=== PATIENT | female | born 1945 | race Caucasian/White ===

== ENCOUNTER 2023-04-04 15:17 | Inpatient (IN) ==
--- NOTE | 2023-04-04 15:41 | DR.NAUSEAF ---
HPI Time Seen Time Seen by Provider: 04/04/23 15:41 Primary Care Physician Primary Care Physician: angelo rodrigues Complaints Chief Complaint Doctors Comments: Patient states that after [employer]ec[employer] she went to her back yard and sat down (12:50). Patient began to feel nauseated,everything appeared whit/bright and states that when he went out to the back yard patient was passed out in the chair. Patient denies:headache,chest pain,abdominal pain,extremity weakness. Chief Complaint:: pt states she went outside about 1250 to the let the dogs out and went to sit down in the chair after that she started feeling nauseous and h er vision got very bright but not blurry. states she passed out states she was slumped over in the chair less than 2 min but pt denies passing out. pt states after this episode she started feeling weak along with diarrhea. COVID-19 Coronavirus risk:travel/contact w/high risk person: No Has patient experienced Coronavirus symptoms: No Source History Provided: Patient Mode of Arrival Mode of Arrival: Wheelchair Timing Onset of Chief Complaint: 04/04/23 PMH PMH Past Medical History: Yes Past Medical History: Hypertension and Hypothyroidism Past Surgical History: Yes Surgical History: Hysterectomy, Tonsillectomy and Other Past Surgical History Comment: cataracts Family History History of Family Medical Conditions: Yes Family Medical History: Hypertension Social History Does patient currently use any type of tobacco product: No Have you used tobacco products in the last 12 months: No Type of Tobacco Use: None Does any household member use tobacco: No Alcohol Use: None Do you use any recreational Drugs:: No Lives With: Spouse Lives Where: Home Travel Risk Coronavirus risk:travel/contact w/high risk person: No Has patient experienced Coronavirus symptoms: No Infectious screening In the last 2 months have you had wt loss of >10#?: NO Have you had fever, night sweats or hemotysis?: No Have you traveled outside the country in the last 6 months?: No Isolation: Standard ROS Review of Systems Constitutional: Weakness Eyes: No Symptoms Reported ENTM: No Symptoms Reported Respiratoy: No Symptoms Reported Cardiovascular: Palpitations Gastrointestinal/Abdominal: Diarrhea and Nausea Genitourinary: No Symptoms Reported Neurological: Weakness; negative Headache, Paresthesia, Seizure or Tingling Musculoskeletal: No Symptoms Reported Integumentary: No Symptoms Reported Hematologic/Lymphatic: No Symptoms Reported Endocrine: No Symptoms Reported Psychiatric: No Symptoms Reported All Other Systems: Reviewed and Negative PE Vital Signs Vitals: Temperature 99.5 F Pulse Rate 108 Respiratory Rate 25 Blood Pressure 175/80 O2 Sat by Pulse Oximetry 98 General Limitations: No Limitations General Appearance: Alert and In No Apparent Distress Head Head Exam: Normal Inspection Eyes Eye exam: Normal Appearance ENT ENT Exam: Normal Exam Neck Neck Exam: Normal Inspection Chest Chest Inspection: Normal Inspection Respiratory Respiratory Exam: Normal Lung Sounds Bilat Respiratory Exam: Bilateral: Clear to Auscultation Cardiovascular Cardiovascular Exam: Normal Rhythm and Tachycardia Abdominal Exam Abdominal Exam: Normal Inspection, Normal Bowel Sounds and Soft Rectal Rectal Exam: Deferred External Exam: Female: Deferred : Speculum Exam (Female): Deferred : Bimanual Exam (female): Deferred Extremities Extremities Exam: Normal Inspection Back Back Exam: Normal Inspection Neurologic Neurological Exam: Alert and Oriented X3 Psychiatric Psychiatric Exam: Normal Affect and Normal Mood Skin Skin Exam: Warm, Dry, Intact and Normal Color MDM Differential Diagnosis Differential Diagnosis: Considerations may Include:: Urinary Tract Infection Differential Diagnosis Comment: Pneumonia,Head trauma,C-spine fracture/subluxation COURSE Treatment Treatment: Patient was brought to a monitored room and IV access was initiated. Patient received NS bolus 500ml + 1000ml iv bolus. She has a u/a with Leuk est 4+ and TNTC wbc. Patient has a wbc 18.9 and blood cx and urine cx have been collected. Patient has received levaquin 750mg iv and will be treated for Urospesis. Patient had a magnesium 1.9 and has received magnesium 2G iv. EKG did not reveal acute ischemia/First troponin is 31.7(nml) 18:[address] Odell. He has accepted patient to [facility].Patient has been stable in the ED [facility] Labs Reviewed Laboratory Results Reviewed?: Yes Result Diagrams: 04/05/23 05:11 04/05/23 05:11 Laboratory: WBC 18.9 X10^3/uL (3.6-10.0) H 04/04/23 16:15 RBC 3.63 X10^6/uL (3.5-5.4) 04/04/23 16:15 Hgb 11.0 g/dL (12.0-16.0) L 04/04/23 16:15 Hct 33.2 % (36.0-47.0) L 04/04/23 16:15 MCV 91.4 fL (80.0-100.0) 04/04/23 16:15 MCH 30.3 pg (27.0-34.0) 04/04/23 16:15 MCHC 33.1 g/dL (33.0-35.0) 04/04/23 16:15 RDW 15.5 % (11.6-16.5) 04/04/23 16:15 Plt Count 479 X10^3/uL (150.0-450.0) H 04/04/23 16:15 MPV 6.9 fL (7.4-11.0) L 04/04/23 16:15 Neut % (Auto) 83.7 % (42.0-75.0) H 04/04/23 16:15 Lymph % (Auto) 5.2 % (21.0-51.0) L 04/04/23 16:15 [place] % (Auto) 10.3 % (0.0-13.0) 04/04/23 16:15 Eos % (Auto) 0.1 % (0.9-2.9) L 04/04/23 16:15 Baso % (Auto) 0.7 % (0.2-1.0) 04/04/23 16:15 Neut # (Auto) 15.9 x10^3/uL (2.2-4.8) H 04/04/23 16:15 Lymph # (Auto) 1.0 X10^3/uL (1.3-2.9) L 04/04/23 16:15 [place] # (Auto) 1.9 x10^3/uL (0.3-0.8) H 04/04/23 16:15 Eos # (Auto) 0.0 x10^3/uL (0.0-0.2) 04/04/23 16:15 Baso # (Auto) 0.1 X10^3/uL (0.0-0.1) 04/04/23 16:15 Absolute Nucleated RBC 0.0 /100WBC 04/04/23 16:15 Sodium 133 mmol/L (136-145) L 04/04/23 16:15 Corrected Sodium 134 mmol/L (136-145) L 04/04/23 16:15 Potassium 3.5 mmol/L (3.5-5.1) 04/04/23 16:15 Chloride 98 mmol/L (98-107) 04/04/23 16:15 Carbon Dioxide 25.3 mmol/L (21-32) 04/04/23 16:15 BUN 12 mg/dL (7-18) 04/04/23 16:15 Creatinine 0.86 mg/dL (0.55-1.02) 04/04/23 16:15 Est GFR (MDRD) Af Amer > 60 (>60) 04/04/23 16:15 Est GFR (MDRD) Non-Af > 60 (>60) 04/04/23 16:15 Glucose 131 mg/dL (65-99) H 04/04/23 16:15 Lactic Acid 0.8 mmol/L (0.4-2.0) 04/04/23 18:31 Calcium 8.5 mg/dL (8.5-10.1) 04/04/23 16:15 Corrected Calcium TNP 04/04/23 16:15 Phosphorus 3.0 mg/dL (2.6-4.7) 04/04/23 18:31 Magnesium 1.9 mg/dL (2.0-2.9) L 04/04/23 16:15 Total Bilirubin 0.50 mg/dL (0.2-1.0) 04/04/23 16:15 AST 21 Units/L (15-37) 04/04/23 16:15 ALT 30 Units/L (12-78) 04/04/23 16:15 Alkaline Phosphatase 90 Units/L (46-116) 04/04/23 16:15 Creatine Kinase 485 Units/L (26-192) H 04/04/23 16:15 Troponin I High Sens 31.7 ng/L (4.0-60.0) 04/04/23 16:15 C-Reactive Protein 55.20 mg/L (0-3.0) H 04/04/23 18:31 Total Protein 7.8 g/dL (6.4-8.2) 04/04/23 16:15 Albumin 3.6 g/dL (3.4-5.0) 04/04/23 16:15 Globulin 4.2 g/dL (2.5-4.5) 04/04/23 16:15 Albumin/Globulin Ratio 0.9 Ratio (1.1-2.1) L 04/04/23 16:15 Specimen Type Clean catch urine 04/04/23 17:06 Urine Color Yellow (YELLOW) 04/04/23 17:06 Urine Appearance Cloudy (CLEAR) 04/04/23 17:06 Urine pH 6.0 (5.0 - 8.0) 04/04/23 17:06 Ur Specific [place] 1.010 (1.000-1.030) 04/04/23 17:06 Urine Protein 2+ (NEGATIVE) 04/04/23 17:06 Urine Glucose (UA) Negative (NEGATIVE) 04/04/23 17:06 Urine Ketones Negative (NEGATIVE) 04/04/23 17:06 Urine Blood 4+ (NEGATIVE) 04/04/23 17:06 Urine Nitrite Negative (NEGATIVE) 04/04/23 17:06 Urine Bilirubin Negative (NEGATIVE) 04/04/23 17:06 Urine Urobilinogen Normal (NORMAL) 04/04/23 17:06 Ur Leukocyte Esterase 3+ (NEGATIVE) 04/04/23 17:06 Urine RBC 10-20 /HPF (0-3) A 04/04/23 17:06 Urine WBC Tntc /HPF (0-5) A 04/04/23 17:06 Ur Squamous Epith Cells Rare /HPF (NEGATIVE) 04/04/23 17:06 Urine Bacteria 3+ /HPF (NEGATIVE) 04/04/23 17:06 Ur Culture Indicated? Yes/culture set up 04/04/23 17:06 XRAY XRAY Interpreted by: Radiologist and Self X-ray Results: CXR: No acute proxcess HISTORY syncope, chf, STUDY BRAIN W/O CON COMPARISON None TECHNIQUE Multiple axial images of the head without contrast. Dose reduction techniques including Automated Exposure Control (AEC) and adjustment of mA and kV were utilized. Contrast: None FINDINGS BRAIN PARENCHYMA: No acute hemorrhage, infarct, mass, or mass effect. Roman-white differentiation is maintained. Scattered white matter chronic small vessel ischemic changes. VENTRICLES/EXTRA-AXIAL SPACES: Unremarkable size and configuration. No hydrocephalus or extra-axial fluid collections. EXTRACRANIAL STRUCTURES:Unremarkable bones and soft tissues. There is acute on chronic left maxillary sinusitis. Visualized paranasal sinuses and mastoids are otherwise clear. IMPRESSION 1. No acute intracranial abnormality. 2. Generalized atrophy and small vessel ischemic disease. 3. Acute on chronic left maxillary sinusitis. Electronically signed by: Manav Nath (April 04, 2023 17:45:52) HISTORY syncope, chf STUDY CERVICAL SPINE W/O CON COMPARISON TECHNIQUE Multiple axial images of the cervical spine were obtained from the skull base to the thoracic inlet without administration of IV contrast. Sagittal and coronal reformats were performed and reviewed. Dose reduction techniques including Automated Exposure Control (AEC) and adjustment of mA and kV were utilized. FINDINGS There is a mild kyphosis in the cervical spine but no malalignment. The bones are osteopenic/osteoporotic. No vertebral compression fracture is identified. There is multilevel disc degeneration. There is multilevel facet hypertrophy. There is no fracture of the posterior elements. There is mild multilevel spinal stenosis. There is no significant neural foraminal stenosis. IMPRESSION Degeneration but nothing acute. Electronically signed by: Manav Nath (April 04, 2023 17:48:05) EKG Compared to prior EKG Dated: 04/04/23 Rate: 106 [place]: Normal Rhythm: ST Opioid Opioid Risk Tool Age (Timothy box if 16-45): No History of Preadolescent Sexual Abuse: No Total: 0 Total Score Risk Category: Low Risk Copyright: Jorge ANDRADE predicting aberrant behaviors Discharge Plan Diagnosis Discharge Problem: Sepsis, Acute UTI, Syncope Discharge Plan Patient Disposition: 09 ADMITTED INPATIENT Condition: Stable
[2023-04-04] MEDS ORDERED: NS 500 ML IV 500 ML IV ONE ×2 (15:45→16:09)
--- NOTE | 2023-04-04 16:06 | EKG ---
Test Reason : syncope Blood Pressure : */* mmHG Vent. Rate : 106 BPM Atrial Rate : 106 BPM P-R Int : 168 ms QRS Dur : 80 ms QT Int : 362 ms P-R-T Axes : 67 85 55 degrees QTc Int : 480 ms Sinus tachycardia Nonspecific ST abnormality Abnormal ECG No previous ECGs available Confirmed by Sergio Pickett ([id number]) on 04/05/2023 7:49:06 AM Referred By: Confirmed By: Sergio Pickett
[2023-04-04 16:33] LABS: BASOPHILS # (AUTO) 0.1 X10^3/uL (0.0-0.1); BASOPHILS % (AUTO) 0.7 % (0.2-1.0); EOSINOPHILS % (AUTO) 0.1 % (0.9-2.9); HEMATOCRIT 33.2 % (36.0-47.0); LYMPHOCYTES % (AUTO) 5.2 % (21.0-51.0); MEAN CORPUSCULAR HEMOGLOBIN 30.3 pg (27.0-34.0); MEAN CORPUSCULAR HGB CONC 33.1 g/dL (33.0-35.0); MEAN CORPUSCULAR VOLUME 91.4 fL (80.0-100.0); MEAN PLATELET VOLUME 6.9 fL (7.4-11.0); MONOCYTES # (AUTO) 1.9 x10^3/uL (0.3-0.8); MONOCYTES % (AUTO) 10.3 % (0.0-13.0); NEUTROPHILS # (AUTO) 15.9 x10^3/uL (2.2-4.8); NEUTROPHILS % (AUTO) 83.7 % (42.0-75.0); PLATELET COUNT 479 X10^3/uL (150.0-450.0); RED BLOOD COUNT 3.63 X10^6/uL (3.5-5.4); RED CELL DISTRIBUTION WIDTH 15.5 % (11.6-16.5); WHITE BLOOD COUNT 18.9 X10^3/uL (3.6-10.0)
[2023-04-04 16:42] LABS: ALANINE AMINOTRANSFERASE 30 Units/L (12-78); ALBUMIN 3.6 g/dL (3.4-5.0); ALKALINE PHOSPHATASE 90 Units/L (46-116); ASPARTATE AMINO TRANSFERASE 21 Units/L (15-37); BLOOD UREA NITROGEN 12 mg/dL (7-18); CALCIUM 8.5 mg/dL (8.5-10.1); CARBON DIOXIDE 25.3 mmol/L (21-32); CHLORIDE 98 mmol/L (98-107); COR NA(FOR HYPERGLY) 134 mmol/L (136-145); CREATINE KINASE 485 Units/L (26-192); CREATININE 0.86 mg/dL (0.55-1.02); GLUCOSE 131 mg/dL (65-99); MAGNESIUM 1.9 mg/dL (2.0-2.9); POTASSIUM 3.5 mmol/L (3.5-5.1); SODIUM 133 mmol/L (136-145); TOTAL PROTEIN 7.8 g/dL (6.4-8.2); eGFR NON BLACK RACES > 60 (>60)
[2023-04-04] MEDS ORDERED: MAGNESIUM SULFATE 1 GRAM/100 mL PREMIX 1 G/100 ML BAG IV SCH (17:12)
[2023-04-04] MEDS ORDERED: NS 1,000 ML IV 1,000 ML ONE (17:26)
[2023-04-04] MEDS ORDERED: MAGNESIUM SULFATE 1 GRAM/100 mL PREMIX 1 G/100 ML BAG IV ONE (17:27)
[2023-04-04 17:28] LABS: BILIRUBIN,URINE NEGATIVE (NEGATIVE); BLOOD/HEMOGLOBIN,URINE 4+ (NEGATIVE); GLUCOSE, URINE NEGATIVE (NEGATIVE); KETONES,URINE NEGATIVE (NEGATIVE); LEUKOCYTE ESTERASE ,URINE 3+ (NEGATIVE); NITRITES,URINE NEGATIVE (NEGATIVE); PROTEIN,URINE 2+ (NEGATIVE); UROBILINOGEN,URINE NORMAL (NORMAL)
[2023-04-04 17:32] LABS: APPEARANCE,URINE CLOUDY (CLEAR); BACTERIA,URINE 3+ /HPF (NEGATIVE); COLOR,URINE YELLOW (YELLOW); SQUAMOUS EPITHELIAL CELL,UR RARE /HPF (NEGATIVE)
[2023-04-04] MEDS: MAGNESIUM SULFATE 1 GRAM/100 mL PREMIX 1 G/100 ML BAG IV SCH ×2 (17:35→21:05)
[2023-04-04] MEDS ORDERED: NS 1,000 ML IV 1,000 ML IV ONE (17:36)
[2023-04-04] MEDS ORDERED: LEVAQUIN PREMIX IV 750 MG 750 MG/150 ML BAG IV ONE ×2 (17:42→18:36)
--- NOTE | 2023-04-04 17:52 | CT ---
HISTORYsyncope, chf,STUDYBRAIN W/O CONCOMPARISONNoneTECHNIQUEMult iple axial images of the head without contrast. Dose reduction techniques including Automated Exposure Control (AEC) and adjustment of mA and kV were utilized.Contrast: NoneFINDINGSBRAIN PARENCHYMA: No acute hemorrhage, infarct, mass, or mass effect.Roman-white differentiation is maintained.Scattered white matter chronic small vessel ischemic changes.VENTRICLES/EXTRA-AXIAL SPACES: Unremarkable size and configuration. No hydrocephalus or extra-axial fluid collections.EXTRACRANIAL STRUCTURES:Unremarkable bones and soft tissues. There is acute on chronic left maxillary sinusitis. Visualized paranasal sinuses and mastoids are otherwise clear.IMPRESSION1. No acute intracranial abnormality. 2. Generalized atrophy and small vessel ischemic disease. 3. Acute on chronic left maxillary sinusitis.Electronically signed by: Manav Nath (April 04, 2023 17:45:52)
--- NOTE | 2023-04-04 17:52 | CT ---
HISTORYsyncope, chfSTUDYCERVICAL SPINE W/O CONCOMPARISONTECHNIQUEMultiple axial images of the cervical spine were obtained from the skull base to the thoracic inlet without administration of IV contrast. Sagittal and coronal reformats were performed and reviewed. Dose reduction techniques including Automated Exposure Control (AEC) and adjustment of mA and kV were utilized.FINDINGSThere is a mild kyphosis in the cervical spine but no malalignment. The bones are osteopenic/osteoporotic. No vertebral compression fracture is identified. There is multilevel disc degeneration. There is multilevel facet hypertrophy. There is no fracture of the posterior elements. There is mild multilevel spinal stenosis. There is no significant neural foraminal stenosis.IMPRESSIONDegeneration but nothing acute.Electronically signed by: Manav Nath (April 04, 2023 17:48:05)
[2023-04-04] MEDS ORDERED: ZOFRAN INJ 4 MG VIAL IVP ONE (19:01)
[2023-04-04] MEDS ORDERED: ZOFRAN INJ 4 MG VIAL ONE (19:01)
[2023-04-04 19:10] LABS: LACTIC ACID 0.8 mmol/L (0.4-2.0)
[2023-04-04] MEDS ORDERED: LOPRESSOR TAB 50 MG PO ONE (19:34)
[2023-04-04] MEDS ORDERED: LOPRESSOR TAB 50 MG ONE (19:35)
--- NOTE | 2023-04-04 20:34 | EKG ---
Test Reason : syncope Blood Pressure : */* mmHG Vent. Rate : 103 BPM Atrial Rate : 103 BPM P-R Int : 170 ms QRS Dur : 78 ms QT Int : 348 ms P-R-T Axes : 58 59 64 degrees QTc Int : 455 ms Sinus tachycardia Nonspecific ST and T wave abnormality Abnormal ECG When compared with ECG of 04-APR-2023 16:04, (Unconfirmed) No significant change was found Confirmed by Sergio Pickett ([id number]) on 04/05/2023 7:48:27 AM Referred By: Confirmed By: Sergio Pickett
--- NOTE | 2023-04-04 21:24 | RAD ---
HISTORYsyncope, chf, Relevant Clinical InformationSTUDYCHEST, 1 [id number]/2023 isFINDINGSThe trachea is midline. The cardiac silhouette is unremarkable. The lungs are clear without focal infiltrate or effusion. The bony thorax is unremarkable.IMPRESSIONNo acute cardiopulmonary findings .Electronically signed by: Abdullahi Miguel (April 04, 2023 21:23:03)
[2023-04-05 01:15] VITALS: BMI 32.1
--- NOTE | 2023-04-05 04:31 | EKG ---
Test Reason : syncope Blood Pressure : */* mmHG Vent. Rate : 97 BPM Atrial Rate : 97 BPM P-R Int : 178 ms QRS Dur : 78 ms QT Int : 380 ms P-R-T Axes : 60 65 62 degrees QTc Int : 482 ms Normal sinus rhythm Prolonged QT Abnormal ECG When compared with ECG of 04-APR-2023 20:25, (Unconfirmed) T wave inversion now evident in Anterior leads Confirmed by Sergio Pickett (4) on 04/05/2023 7:48:10 AM Referred By: Confirmed By: Sergio Pickett
[2023-04-05 05:26] LABS: BASOPHILS # (AUTO) 0.2 X10^3/uL (0.0-0.1); BASOPHILS % (AUTO) 1.4 % (0.2-1.0); EOSINOPHILS % (AUTO) 0.2 % (0.9-2.9); HEMOGLOBIN 10.4 g/dL (12.0-16.0); LYMPHOCYTES # (AUTO) 2.3 X10^3/uL (1.3-2.9); LYMPHOCYTES % (AUTO) 13.8 % (21.0-51.0); MEAN CORPUSCULAR HEMOGLOBIN 30.5 pg (27.0-34.0); MEAN CORPUSCULAR HGB CONC 33.4 g/dL (33.0-35.0); MEAN CORPUSCULAR VOLUME 91.3 fL (80.0-100.0); MEAN PLATELET VOLUME 7.2 fL (7.4-11.0); MONOCYTES # (AUTO) 2.2 x10^3/uL (0.3-0.8); MONOCYTES % (AUTO) 13.2 % (0.0-13.0); NEUTROPHILS # (AUTO) 11.8 x10^3/uL (2.2-4.8); NEUTROPHILS % (AUTO) 71.4 % (42.0-75.0); PLATELET COUNT 436 X10^3/uL (150.0-450.0); RED CELL DISTRIBUTION WIDTH 15.3 % (11.6-16.5); WHITE BLOOD COUNT 16.6 X10^3/uL (3.6-10.0)
[2023-04-05 05:36] LABS: INR 1.22 (0.8-1.3)
[2023-04-05 05:37] LABS: ALANINE AMINOTRANSFERASE 22 Units/L (12-78); ALBUMIN 2.8 g/dL (3.4-5.0); ALKALINE PHOSPHATASE 75 Units/L (46-116); ASPARTATE AMINO TRANSFERASE 20 Units/L (15-37); BLOOD UREA NITROGEN 9 mg/dL (7-18); CALCIUM 8.4 mg/dL (8.5-10.1); CARBON DIOXIDE 24.7 mmol/L (21-32); CHLORIDE 100 mmol/L (98-107); COR CA(FOR HYPOALB) 9.4 mg/dL (8.5-10.1); COR NA(FOR HYPERGLY) 132 mmol/L (136-145); GLUCOSE 119 mg/dL (65-99); POTASSIUM 3.4 mmol/L (3.5-5.1); SODIUM 132 mmol/L (136-145); TOTAL PROTEIN 7.7 g/dL (6.4-8.2); eGFR NON BLACK RACES > 60 (>60)
[2023-04-05 05:42] LABS: LACTIC ACID 0.9 mmol/L (0.4-2.0)
[2023-04-05] MEDS ORDERED: HEPARIN SODIUM INJ 5000 UNITS IVP ONE ×2 (05:59→13:34)
[2023-04-05] MEDS ORDERED: HEPARIN SODIUM INJ 5000 UNITS ONE (06:20)
[2023-04-05] MEDS: HEPARIN SODIUM IN D5W 25,000 UNITS/500 ML BAG IV PRN (06:22)
[2023-04-05] MEDS ORDERED: KLOR-CON PO PRN ×2 (08:09→15:18)
[2023-04-05] MEDS ORDERED: POTASSIUM CHLORIDE LIQ 20 MEQ UDC PO PRN ×2 (08:09→15:18)
[2023-04-05] MEDS ORDERED: MICRO K EXTEN CAP 10 MEQ PO PRN ×2 (08:09→15:18)
[2023-04-05] MEDS ORDERED: K-DUR TAB 20 MEQ PO PRN ×2 (08:09→15:18)
[2023-04-05] MEDS ORDERED: POTASSIUM CHL 60 MEQ/NS 0.45% 500 ML IV PRN ×2 (08:09→15:18)
[2023-04-05] MEDS ORDERED: POTASSIUM CHL 40 MEQ/NS 0.45% 500 ML IV PRN ×2 (08:09→15:18)
[2023-04-05] MEDS ORDERED: MAGNESIUM SULFATE 1 GRAM/100 mL PREMIX 1 G/100 ML BAG IV PRN ×2 (08:09→15:18)
[2023-04-05] MEDS ORDERED: K-RIDER 10 MEQ/NS 100 ML 10 MEQ/100 ML BAG IV PRN ×2 (08:09→15:18)
--- NOTE | 2023-04-05 08:42 | EKG ---
Test Reason : r Blood Pressure : */* mmHG Vent. Rate : 96 BPM Atrial Rate : 96 BPM P-R Int : 140 ms QRS Dur : 76 ms QT Int : 302 ms P-R-T Axes : 44 66 93 degrees QTc Int : 381 ms Normal sinus rhythm Abnormal ECG When compared with ECG of 05-APR-2023 04:22, QT has shortened Confirmed by Sergio Pickett (4) on 04/07/2023 12:35:08 PM Referred By: Confirmed By: Sergio Pickett
[2023-04-05] MEDS ORDERED: PATIENT'S HOME MEDICATION (Thyroid (Pork) [Armour Thyroid] 30 mg tablet) PO SCH (09:00)
[2023-04-05] MEDS: CIPRO IV 400 MG PREMIX* 400 MG/200 ML IV.SOLN. IV SCH ×2 (10:25→20:22)
--- NOTE | 2023-04-05 12:52 | CT ---
HISTORYElevated D-dimerSTUDYCTA chest with contrast for pulmonary embolusTechnique: Axial post-contrast images with coronal, sagittal, and 3 dimensional maximum intensity projection images obtained and evaluated. Dose reduction procedures were used with mA/kv adjusted for body size.COMPARISONNoneFINDINGSThere is no evidence for acute pulmonary thromboembolic disease. Examination of the mediastinum demonstrated no evidence for mediastinal masses, enlarged mediastinal or enlarged hilar adenopathy or significant aortic abnormality. The heart is enlarged. No pleural effusions are identified. No chest wall or axillary abnormality is identified. Those portions of the upper abdominal organs visualized were within normal limits with the exception of partially visualized hydronephrosis on the left. CT abdomen pelvis would be of further diagnostic value. Thoracic spinal osteopenia is present with mid thoracic compression fractures of indeterminate age. Examination of the lung corea demonstrated no significant nodules, masses, alveolar infiltrates, areas of consolidation, peribronchial thickening, or bronchiectasis.IMPRESSIONNo evidence for acute pulmonary thromboembolic diseaseMarked cardiomegaly without congestive heart failureNo acute lung infiltrates identifiedLeft-sided renal hydronephrosis for which further evaluation with CT of the abdomen pelvis is recommended.Electronically signed by: MILA CROUCH (April 05, 2023 12:50:45)
[2023-04-06] MEDS: HEPARIN SODIUM IN D5W 25,000 UNITS/500 ML BAG IV PRN (05:55)
[2023-04-06 06:15] VITALS: BP 135/62
--- NOTE | 2023-04-06 07:54 | DR.H&P ---
H&P History & Physical for Day of: H&P Date: 04/05/23 Chief Complaint Chief Complaint: Syncope Chest pain Allergies Allergies Allergy/AdvReac Type Severity Reaction Status Date / Time amoxicillin [From Augmentin] Allergy Verified 03/21/23 11:50 clavulanic acid Allergy Verified 03/21/23 11:50 [From Augmentin] epinephrine Allergy Verified 03/21/23 11:50 History of Present Illness History of Present Illness: Pt is a 77 year old female past medical history of hypertension, hypothyroidism, presenting after having syncopal episode at home. Per her that witnessed the event, pt was sitting in chair and felt chest tightness, nausea, and then "passed out" for at least 2 minutes before she regained consciousness. She reports she has been having chest tightness more frequently for the past few months with it sometimes even waking her up at [facility]. Labs/imaging: Wbc 16.6, Hgb 10.4, Plt 436, Na 132, K 3.4, Creatinine 0.80, Glucose 119, UA c/w infection, Urine/Blood cultures pending, Troponin 42>81>241, Ekg: ST and T wave abnormality, consider lateral ischemia, T-wave inversion anterior leads, D-dimer 0.86. Pt admitted for NSTEMI, Acute Cystitis, and Syncope. Troponin level trending up, pt was started on heparin gtt. D-dimer elevated, will get CTA chest stat to rule out pulmonary embolism. Monitor on telemetry. Treat cystitis with antibiotics IV ciprofloxacin 400mg BID. Will start on transfer to higher level of care facility for NSTEMI for cardiology evaluation. Time spent on clinical assessment, reviewing labs and imaging, decision making, and documentation greater than 45 minutes. Past Medical History Past Medical History: Hypertension and Hypothyroidism Past Surgical History Surgical History: Tonsillectomy Family History Family Medical History: Hypertension Social History Does patient currently use any type of tobacco product: No Have you used tobacco products in the last 12 months: No Type of Tobacco Use: None Does any household member use tobacco: No Alcohol Use: None Drug Use: None Medications Home Medications: amoxicillin [From Augmentin] Allergy (Verified 03/21/23 11:50) clavulanic acid [From Augmentin] Allergy (Verified 03/21/23 11:50) epinephrine Allergy (Verified 03/21/23 11:50) CONTINUE taking the following medications candesartan 16 mg tablet 1 tab PO QDAY 04/04/23 [History] thyroid (pork) 30 mg tablet ([place] Thyroid) 1 tab PO QDAY 04/04/23 [History] ascorbic acid (vitamin C) 500 mg tablet (Vitamin C) 500 mg PO BID 04/05/23 [History] diphenhydramine HCl 25 mg capsule (Benadryl) 25 mg PO HS PRN Sleep 04/05/23 [History] multivitamin 1 tab PO DAILY 04/05/23 [History] naproxen sodium 220 mg tablet (Aleve) 220 mg PO DAILY 04/05/23 [History] Labs Result Diagrams: 04/05/23 05:11 04/05/23 05:11 Labs: Laboratory WBC 16.6 X10^3/uL (3.6-10.0) H 04/05/23 05:11 RBC 3.40 X10^6/uL (3.5-5.4) L 04/05/23 05:11 Hgb 10.4 g/dL (12.0-16.0) L 04/05/23 05:11 Hct 31.0 % (36.0-47.0) L 04/05/23 05:11 MCV 91.3 fL (80.0-100.0) 04/05/23 05:11 MCH 30.5 pg (27.0-34.0) 04/05/23 05:11 MCHC 33.4 g/dL (33.0-35.0) 04/05/23 05:11 RDW 15.3 % (11.6-16.5) 04/05/23 05:11 Plt Count 436 X10^3/uL (150.0-450.0) 04/05/23 05:11 MPV 7.2 fL (7.4-11.0) L 04/05/23 05:11 Neut % (Auto) 71.4 % (42.0-75.0) 04/05/23 05:11 Lymph % (Auto) 13.8 % (21.0-51.0) L 04/05/23 05:11 [place] % (Auto) 13.2 % (0.0-13.0) H 04/05/23 05:11 Eos % (Auto) 0.2 % (0.9-2.9) L 04/05/23 05:11 Baso % (Auto) 1.4 % (0.2-1.0) H 04/05/23 05:11 Neut # (Auto) 11.8 x10^3/uL (2.2-4.8) H 04/05/23 05:11 Lymph # (Auto) 2.3 X10^3/uL (1.3-2.9) 04/05/23 05:11 [place] # (Auto) 2.2 x10^3/uL (0.3-0.8) H 04/05/23 05:11 Eos # (Auto) 0.0 x10^3/uL (0.0-0.2) 04/05/23 05:11 Baso # (Auto) 0.2 X10^3/uL (0.0-0.1) H 04/05/23 05:11 Absolute Nucleated RBC 0.0 /100WBC 04/05/23 05:11 PT 15.2 SECONDS (11.8-14.3) 04/05/23 05:11 INR Target Range - 04/05/23 05:11 INR 1.22 (0.8-1.3) 04/05/23 05:11 APTT 30.7 SECONDS (22.9-36.5) 04/05/23 05:11 PTT Comment - 04/05/23 05:11 D-Dimer 0.86 ug/ml (0.0-0.57) H 04/05/23 05:11 Sodium 132 mmol/L (136-145) L 04/05/23 05:11 Corrected Sodium 132 mmol/L (136-145) L 04/05/23 05:11 Potassium 3.4 mmol/L (3.5-5.1) L 04/05/23 05:11 Chloride 100 mmol/L (98-107) 04/05/23 05:11 Carbon Dioxide 24.7 mmol/L (21-32) 04/05/23 05:11 BUN 9 mg/dL (7-18) 04/05/23 05:11 Creatinine 0.80 mg/dL (0.55-1.02) 04/05/23 05:11 Est GFR (MDRD) Af Amer > 60 (>60) 04/05/23 05:11 Est GFR (MDRD) Non-Af > 60 (>60) 04/05/23 05:11 Glucose 119 mg/dL (65-99) H 04/05/23 05:11 Lactic Acid 0.9 mmol/L (0.4-2.0) 04/05/23 05:11 Calcium 8.4 mg/dL (8.5-10.1) L 04/05/23 05:11 Corrected Calcium 9.4 mg/dL (8.5-10.1) 04/05/23 05:11 Phosphorus 3.0 mg/dL (2.6-4.7) 04/04/23 18:31 Magnesium 2.3 mg/dL (2.0-2.9) 04/05/23 05:11 Total Bilirubin 0.80 mg/dL (0.2-1.0) 04/05/23 05:11 AST 20 Units/L (15-37) 04/05/23 05:11 ALT 22 Units/L (12-78) 04/05/23 05:11 Alkaline Phosphatase 75 Units/L (46-116) 04/05/23 05:11 Creatine Kinase 415 Units/L (26-192) H 04/05/23 03:46 Troponin I High Sens 241.9 ng/L (4.0-60.0) H* 04/05/23 03:46 C-Reactive Protein 55.20 mg/L (0-3.0) H 04/04/23 18:31 Total Protein 7.7 g/dL (6.4-8.2) 04/05/23 05:11 Albumin 2.8 g/dL (3.4-5.0) L 04/05/23 05:11 Globulin 4.9 g/dL (2.5-4.5) H 04/05/23 05:11 Albumin/Globulin Ratio 0.6 Ratio (1.1-2.1) L 04/05/23 05:11 Specimen Type Clean catch urine 04/04/23 17:06 Urine Color Yellow (YELLOW) 04/04/23 17:06 Urine Appearance Cloudy (CLEAR) 04/04/23 17:06 Urine pH 6.0 (5.0 - 8.0) 04/04/23 17:06 Ur Specific [place] 1.010 (1.000-1.030) 04/04/23 17:06 Urine Protein 2+ (NEGATIVE) 04/04/23 17:06 Urine Glucose (UA) Negative (NEGATIVE) 04/04/23 17:06 Urine Ketones Negative (NEGATIVE) 04/04/23 17:06 Urine Blood 4+ (NEGATIVE) 04/04/23 17:06 Urine Nitrite Negative (NEGATIVE) 04/04/23 17:06 Urine Bilirubin Negative (NEGATIVE) 04/04/23 17:06 Urine Urobilinogen Normal (NORMAL) 04/04/23 17:06 Ur Leukocyte Esterase 3+ (NEGATIVE) 04/04/23 17:06 Urine RBC 10-20 /HPF (0-3) A 04/04/23 17:06 Urine WBC Tntc /HPF (0-5) A 04/04/23 17:06 Ur Squamous Epith Cells Rare /HPF (NEGATIVE) 04/04/23 17:06 Urine Bacteria 3+ /HPF (NEGATIVE) 04/04/23 17:06 Ur Culture Indicated? Yes/culture set up 04/04/23 17:06 Review of Systems Constitutional: No Symptoms Reported Eyes: No Symptoms Reported ENT: No Symptoms Reported Respiratory: No Symptoms Reported Cardiovascular: Chest Pain Gastrointestinal: No Symptoms Reported Genitourinary: Dysuria Musculoskeletal: No Symptoms Reported Skin: No Symptoms Reported Neurological: No Symptoms Reported Physical Exam Vital Signs: Temperature 98 F Pulse Rate [Brachial] 96 Pulse Rate 108 Respiratory Rate 20 Blood Pressure [Left Arm] 131/63 Blood Pressure 175/80 O2 Sat by Pulse Oximetry 96 Oriented: Normal Eyes: Normal Ear: Normal Nose: Normal Throat: Normal Respiratory: Clear Throughout Cardiovascular: Normal : Normal Auscultation: Bowel Sounds: Normal Palpation: Normal Tenderness: Normal Skin: Normal Musculoskeletal: Normal Psychiatric: Normal Mood Description: Calm and Appropriate Affect: Normal Speech Pattern: Clear and Appropriate Assessment/Plan (1) NSTEMI (non-ST elevated myocardial infarction): Status: Acute Plan: Monitor on telemetry Trend cardiac enzymes Repeat ekg (2) Acute UTI: Status: Acute Plan: IV ciprofloxacin Urine/blood culture pending (3) Syncope: Status: Acute Review H&P Reviewed: Yes Patient was examined?: Yes
--- NOTE | 2023-04-06 14:13 | W.DIS.FURT ---
Summary of Discharge Discharge Summary of Date Date of Exam: 04/06/23 Admission Date Date of Admission: 04/04/23 Admission Diagnosis Patient Problems (Updated 04/06/23 @ 07:53 by Madhu Odell) Acute UTI (Acute) N39.0 Sepsis (Acute) A41.9 Syncope (Acute) R55 Hospital Course: Pt is a 77 year old female past medical history of hypertension, hypothyroidism, admitted for , NSTEMI, syncopal episode, acute cystitis. Labs/imaging: Wbc 16.6, Hgb 10.4, Plt 436, Na 132, K 3.4, Creatinine 0.80, Glucose 119, UA c/w infection, Urine/Blood cultures pending, Troponin 241>479>303, Ekg: ST and T wave abnormality, consider lateral ischemia, T-wave inversion anterior leads, D- dimer 0.86. CTA negative for pulmonary embolism. Troponin level elevated, pt is currently on heparin gtt. Treating cystitis with antibiotics IV ciprofloxacin 400mg BID. Pt transferred to higher level of care facility [facility] for NSTEMI for cardiology evaluation. Time spent on clinical assessment, reviewing labs and imaging, decision making, and documentation greater than 45 minutes. Vital Signs: Vital Signs (72 hours) 04/04/23 15:27 04/04/23 15:25 04/04/23 15:30 Temperature 99.5 F Pulse Rate 103 H 108 H Pulse Rate [Brachial] Respiratory Rate 20 20 Blood Pressure 188/88 177/66 Blood Pressure [Left Arm] O2 Sat by Pulse Oximetry 98 100 Oxygen Delivery Method Room Air Oxygen Flow Rate FIO2% 04/04/23 15:30 04/04/23 15:45 04/04/23 16:01 Temperature Pulse Rate 105 H 105 H 110 H Pulse Rate [Brachial] Respiratory Rate 17 21 21 Blood Pressure Blood Pressure [Left Arm] O2 Sat by Pulse Oximetry 99 99 99 Oxygen Delivery Method Oxygen Flow Rate FIO2% 04/04/23 16:15 04/04/23 16:30 04/04/23 16:45 Temperature Pulse Rate 109 H 104 H 104 H Pulse Rate [Brachial] Respiratory Rate 22 20 21 Blood Pressure Blood Pressure [Left Arm] O2 Sat by Pulse Oximetry 99 99 99 Oxygen Delivery Method Oxygen Flow Rate FIO2% 04/04/23 17:04 04/04/23 17:04 04/04/23 17:08 Temperature Pulse Rate 121 H Pulse Rate [Brachial] Respiratory Rate 20 Blood Pressure 192/88 185/87 Blood Pressure [Left Arm] O2 Sat by Pulse Oximetry 99 Oxygen Delivery Method Oxygen Flow Rate FIO2% 04/04/23 17:08 04/04/23 17:15 04/04/23 17:22 Temperature Pulse Rate 110 H 110 H Pulse Rate [Brachial] Respiratory Rate 17 27 H Blood Pressure 183/86 Blood Pressure [Left Arm] O2 Sat by Pulse Oximetry 100 98 Oxygen Delivery Method Oxygen Flow Rate FIO2% 04/04/23 17:22 04/04/23 17:30 04/04/23 17:30 Temperature Pulse Rate 109 H 109 H Pulse Rate [Brachial] Respiratory Rate 19 21 Blood Pressure 175/80 Blood Pressure [Left Arm] O2 Sat by Pulse Oximetry 98 97 Oxygen Delivery Method Oxygen Flow Rate FIO2% 04/04/23 17:30 04/04/23 17:45 04/04/23 17:59 Temperature Pulse Rate 106 H 109 H Pulse Rate [Brachial] Respiratory Rate 22 17 Blood Pressure 175/80 Blood Pressure [Left Arm] O2 Sat by Pulse Oximetry 96 98 Oxygen Delivery Method Oxygen Flow Rate FIO2% 04/04/23 18:00 04/04/23 18:00 04/04/23 18:15 Temperature Pulse Rate 110 H 108 H Pulse Rate [Brachial] Respiratory Rate 14 25 H Blood Pressure 175/80 Blood Pressure [Left Arm] O2 Sat by Pulse Oximetry 98 98 Oxygen Delivery Method Oxygen Flow Rate FIO2% 04/04/23 19:49 04/04/23 20:00 04/04/23 20:30 Temperature 99.6 F Pulse Rate Pulse Rate [Brachial] 116 H Respiratory Rate 18 20 Blood Pressure Blood Pressure [Left Arm] 182/79 178/72 O2 Sat by Pulse Oximetry 98 98 Oxygen Delivery Method Room Air Room Air Room Air Oxygen Flow Rate FIO2% 04/05/23 00:00 04/05/23 04:00 04/05/23 06:15 Temperature 98.5 F 98 F Pulse Rate Pulse Rate [Brachial] 91 H 96 H 96 H Respiratory Rate 18 18 20 Blood Pressure Blood Pressure [Left Arm] 134/63 138/65 131/63 O2 Sat by Pulse Oximetry 95 97 96 Oxygen Delivery Method Room Air Room Air Room Air Oxygen Flow Rate FIO2% 04/05/23 08:45 04/05/23 08:00 04/05/23 09:00 Temperature 97.2 F L Pulse Rate Pulse Rate [Brachial] 101 H 92 H Respiratory Rate 25 H 26 H Blood Pressure Blood Pressure [Left Arm] 139/67 155/72 O2 Sat by Pulse Oximetry 98 100 Oxygen Delivery Method Room Air Room Air Room Air Oxygen Flow Rate 2 FIO2% 28 04/05/23 10:00 04/05/23 11:00 04/05/23 07:00 Temperature Pulse Rate Pulse Rate [Brachial] 97 H 90 Respiratory Rate 21 21 Blood Pressure Blood Pressure [Left Arm] 163/74 146/65 O2 Sat by Pulse Oximetry 100 100 Oxygen Delivery Method Room Air Room Air Room Air Oxygen Flow Rate FIO2% 04/05/23 12:00 04/05/23 13:00 04/05/23 14:00 Temperature Pulse Rate Pulse Rate [Brachial] 90 85 89 Respiratory Rate 21 18 19 Blood Pressure Blood Pressure [Left Arm] 147/65 156/67 138/65 O2 Sat by Pulse Oximetry 100 100 100 Oxygen Delivery Method Room Air Room Air Room Air Oxygen Flow Rate FIO2% 04/05/23 15:00 04/05/23 16:00 04/05/23 17:00 Temperature 99.4 F Pulse Rate Pulse Rate [Brachial] 91 H 93 H 95 H Respiratory Rate 21 24 21 Blood Pressure Blood Pressure [Left Arm] 145/63 148/67 147/65 O2 Sat by Pulse Oximetry 100 98 97 Oxygen Delivery Method Room Air Room Air Room Air Oxygen Flow Rate FIO2% 04/05/23 18:00 04/05/23 20:22 04/05/23 19:00 Temperature Pulse Rate Pulse Rate [Brachial] 99 H Respiratory Rate 23 Blood Pressure Blood Pressure [Left Arm] 143/64 O2 Sat by Pulse Oximetry 98 Oxygen Delivery Method Room Air Nasal Cannula Room Air Oxygen Flow Rate 2 FIO2% 28 04/05/23 19:00 04/05/23 20:00 04/05/23 21:00 Temperature 98.1 F Pulse Rate Pulse Rate [Brachial] 95 H 97 H 104 H Respiratory Rate 19 23 40 H Blood Pressure Blood Pressure [Left Arm] 151/65 166/72 147/77 O2 Sat by Pulse Oximetry 99 98 97 Oxygen Delivery Method Room Air Room Air Room Air Oxygen Flow Rate FIO2% 04/05/23 22:00 04/05/23 23:00 04/06/23 00:00 Temperature 98.2 F Pulse Rate Pulse Rate [Brachial] 97 H 94 H 86 Respiratory Rate 22 25 H 19 Blood Pressure Blood Pressure [Left Arm] 127/58 136/61 136/60 O2 Sat by Pulse Oximetry 98 98 96 Oxygen Delivery Method Room Air Room Air Room Air Oxygen Flow Rate FIO2% 04/06/23 01:00 04/06/23 02:00 04/06/23 03:00 Temperature Pulse Rate Pulse Rate [Brachial] 87 82 94 H Respiratory Rate 30 H 18 21 Blood Pressure Blood Pressure [Left Arm] 120/59 122/58 135/64 O2 Sat by Pulse Oximetry 98 98 99 Oxygen Delivery Method Room Air Room Air Room Air Oxygen Flow Rate FIO2% 04/06/23 04:00 04/06/23 05:00 04/06/23 06:00 Temperature 98.1 F Pulse Rate Pulse Rate [Brachial] 91 H 95 H 84 Respiratory Rate 33 H Blood Pressure Blood Pressure [Left Arm] 135/62 O2 Sat by Pulse Oximetry 99 98 99 Oxygen Delivery Method Oxygen Flow Rate FIO2% 04/06/23 07:00 Temperature Pulse Rate Pulse Rate [Brachial] Respiratory Rate Blood Pressure Blood Pressure [Left Arm] O2 Sat by Pulse Oximetry Oxygen Delivery Method Room Air Oxygen Flow Rate FIO2% Labs: Laboratory Last Values WBC 16.6 X10^3/uL (3.6-10.0) H 04/05/23 05:11 RBC 3.40 X10^6/uL (3.5-5.4) L 04/05/23 05:11 Hgb 10.4 g/dL (12.0-16.0) L 04/05/23 05:11 Hct 31.0 % (36.0-47.0) L 04/05/23 05:11 MCV 91.3 fL (80.0-100.0) 04/05/23 05:11 MCH 30.5 pg (27.0-34.0) 04/05/23 05:11 MCHC 33.4 g/dL (33.0-35.0) 04/05/23 05:11 RDW 15.3 % (11.6-16.5) 04/05/23 05:11 Plt Count 436 X10^3/uL (150.0-450.0) 04/05/23 05:11 MPV 7.2 fL (7.4-11.0) L 04/05/23 05:11 Neut % (Auto) 71.4 % (42.0-75.0) 04/05/23 05:11 Lymph % (Auto) 13.8 % (21.0-51.0) L 04/05/23 05:11 [place] % (Auto) 13.2 % (0.0-13.0) H 04/05/23 05:11 Eos % (Auto) 0.2 % (0.9-2.9) L 04/05/23 05:11 Baso % (Auto) 1.4 % (0.2-1.0) H 04/05/23 05:11 Neut # (Auto) 11.8 x10^3/uL (2.2-4.8) H 04/05/23 05:11 Lymph # (Auto) 2.3 X10^3/uL (1.3-2.9) 04/05/23 05:11 [place] # (Auto) 2.2 x10^3/uL (0.3-0.8) H 04/05/23 05:11 Eos # (Auto) 0.0 x10^3/uL (0.0-0.2) 04/05/23 05:11 Baso # (Auto) 0.2 X10^3/uL (0.0-0.1) H 04/05/23 05:11 Absolute Nucleated RBC 0.0 /100WBC 04/05/23 05:11 PT 15.2 SECONDS (11.8-14.3) 04/05/23 05:11 INR Target Range - 04/05/23 05:11 INR 1.22 (0.8-1.3) 04/05/23 05:11 APTT 65.4 SECONDS (22.9-36.5) H 04/06/23 07:34 PTT Comment - 04/06/23 07:34 D-Dimer 0.86 ug/ml (0.0-0.57) H 04/05/23 05:11 Sodium 132 mmol/L (136-145) L 04/05/23 05:11 Corrected Sodium 132 mmol/L (136-145) L 04/05/23 05:11 Potassium 3.4 mmol/L (3.5-5.1) L 04/05/23 05:11 Chloride 100 mmol/L (98-107) 04/05/23 05:11 Carbon Dioxide 24.7 mmol/L (21-32) 04/05/23 05:11 BUN 9 mg/dL (7-18) 04/05/23 05:11 Creatinine 0.80 mg/dL (0.55-1.02) 04/05/23 05:11 Est GFR (MDRD) Af Amer > 60 (>60) 04/05/23 05:11 Est GFR (MDRD) Non-Af > 60 (>60) 04/05/23 05:11 Glucose 119 mg/dL (65-99) H 04/05/23 05:11 Lactic Acid 0.7 mmol/L (0.4-2.0) 04/05/23 13:00 Calcium 8.4 mg/dL (8.5-10.1) L 04/05/23 05:11 Corrected Calcium 9.4 mg/dL (8.5-10.1) 04/05/23 05:11 Phosphorus 3.0 mg/dL (2.6-4.7) 04/04/23 18:31 Magnesium 2.3 mg/dL (2.0-2.9) 04/05/23 05:11 Total Bilirubin 0.80 mg/dL (0.2-1.0) 04/05/23 05:11 AST 20 Units/L (15-37) 04/05/23 05:11 ALT 22 Units/L (12-78) 04/05/23 05:11 Alkaline Phosphatase 75 Units/L (46-116) 04/05/23 05:11 Creatine Kinase 415 Units/L (26-192) H 04/05/23 03:46 Troponin I High Sens 303.5 ng/L (4.0-60.0) H* 04/05/23 20:31 C-Reactive Protein 55.20 mg/L (0-3.0) H 04/04/23 18:31 Total Protein 7.7 g/dL (6.4-8.2) 04/05/23 05:11 Albumin 2.8 g/dL (3.4-5.0) L 04/05/23 05:11 Globulin 4.9 g/dL (2.5-4.5) H 04/05/23 05:11 Albumin/Globulin Ratio 0.6 Ratio (1.1-2.1) L 04/05/23 05:11 Specimen Type Clean catch urine 04/04/23 17:06 Urine Color Yellow (YELLOW) 04/04/23 17:06 Urine Appearance Cloudy (CLEAR) 04/04/23 17:06 Urine pH 6.0 (5.0 - 8.0) 04/04/23 17:06 Ur Specific [place] 1.010 (1.000-1.030) 04/04/23 17:06 Urine Protein 2+ (NEGATIVE) 04/04/23 17:06 Urine Glucose (UA) Negative (NEGATIVE) 04/04/23 17:06 Urine Ketones Negative (NEGATIVE) 04/04/23 17:06 Urine Blood 4+ (NEGATIVE) 04/04/23 17:06 Urine Nitrite Negative (NEGATIVE) 04/04/23 17:06 Urine Bilirubin Negative (NEGATIVE) 04/04/23 17:06 Urine Urobilinogen Normal (NORMAL) 04/04/23 17:06 Ur Leukocyte Esterase 3+ (NEGATIVE) 04/04/23 17:06 Urine RBC 10-20 /HPF (0-3) A 04/04/23 17:06 Urine WBC Tntc /HPF (0-5) A 04/04/23 17:06 Ur Squamous Epith Cells Rare /HPF (NEGATIVE) 04/04/23 17:06 Urine Bacteria 3+ /HPF (NEGATIVE) 04/04/23 17:06 Ur Culture Indicated? Yes/culture set up 04/04/23 17:06 Reason For Visit: UROSEPSIS Discharge Date Discharge Date: 04/06/23 Discharge Diagnosis All Active Problems (Updated 04/06/23 @ 07:53 by Madhu Odell) NSTEMI (non-ST elevated myocardial infarction) (Acute) Acute UTI (Acute) Bronchitis (Acute) Sepsis (Acute) Syncope (Acute) Plan of Treatment: Continue with present treatment and follow up plan. Pt is to keep follow up appointment as instructed and take medications as ordered. Discharge Medications Discharge Medications: amoxicillin [From Augmentin] Allergy (Verified 03/21/23 11:50) clavulanic acid [From Augmentin] Allergy (Verified 03/21/23 11:50) epinephrine Allergy (Verified 03/21/23 11:50) CONTINUE taking the following medications candesartan 16 mg tablet 1 tab PO QDAY 04/04/23 [History] thyroid (pork) 30 mg tablet (Ilion Thyroid) 1 tab PO QDAY 04/04/23 [History] ascorbic acid (vitamin C) 500 mg tablet (Vitamin C) 500 mg PO BID 04/05/23 [History] diphenhydramine HCl 25 mg capsule (Benadryl) 25 mg PO HS PRN Sleep 04/05/23 [History] multivitamin 1 tab PO DAILY 04/05/23 [History] naproxen sodium 220 mg tablet (Aleve) 220 mg PO DAILY 04/05/23 [History] Discharge Plan Discharge Plan Hospital Course: Pt is a 77 year old female past medical history of hypertension, hypothyroidism, admitted for , NSTEMI, syncopal episode, acute cystitis. Labs/imaging: Wbc 16.6, Hgb 10.4, Plt 436, Na 132, K 3.4, Creatinine 0.80, Glucose 119, UA c/w infection, Urine/Blood cultures pending, Troponin 241>479>303, Ekg: ST and T wave abnormality, consider lateral ischemia, T-wave inversion anterior leads, D- dimer 0.86. CTA negative for pulmonary embolism. Troponin level elevated, pt is currently on heparin gtt. Treating cystitis with antibiotics IV ciprofloxacin 400mg BID. Pt transferred to higher level of care facility [facility] for NSTEMI for cardiology evaluation. Time spent on clinical assessment, reviewing labs and imaging, decision making, and documentation greater than 45 minutes. Patient Disposition: 66 XFER CRIT ACCESS HOSP IN Condition: Stable Health Concerns: Post Hospitalization: new medications and changes needed to prevent readmission or further decline. Pt educated and given instructions on all concerns. Plan of Treatment: Continue with present treatment and follow up plan. Pt is to keep follow up appointment as instructed and take medications as ordered. Prescriptions: No Action candesartan 16 mg tablet 1 tab PO QDAY [place] Thyroid 30 mg tablet 1 tab PO QDAY multivitamin Tablet 1 tab PO DAILY ascorbic acid (vitamin C) [Vitamin C] 500 mg Tablet 500 mg PO BID diphenhydramine HCl [Benadryl] 25 mg Capsule 25 mg PO HS PRN (Reason: Sleep) naproxen sodium [Aleve] 220 mg Tablet 220 mg PO DAILY Orders to Discharge Patient Discharge Orders: Discharge by Transfer to Outside Facility (Routine); Ordered 04/06/23 Ordered By: Madhu Odell Follow ups/Referrals Follow ups/Referrals: BERNARDO LARA [Primary Care Provider] - 3 days
== END 2023-04-06 08:33 | disposition critical access hospital (66) | DRG 689 ==
LOC: ER 15:17 → MED/SURG 19:13 → ICU 04-05 06:10
PROVIDERS: ADMIT Family Medicine; ATTEND Family Medicine
DX: N39.0 Urinary tract infection, site not specified; I21.4 Non-ST elevation (NSTEMI) myocardial infarction; R79.1 Abnormal coagulation profile; R77.8 Other specified abnormalities of plasma proteins; R79.82 Elevated C-reactive protein (CRP); R55 Syncope and collapse